=== PATIENT | male | born 1970 | race Two or more races ===

== ENCOUNTER 2017-02-05 07:19 | Emergency (ER) | payer MEDICAID ==
[~2017-02-05] VITALS: Ht 188 cm; Wt 92.1 kg
[~2017-02-05 07:19] MED LIST: GABA300C PO; INSLANTI SC; LEVO150T58 PO; METF-312; METF-314 PO
[2017-02-05 07:38] VITALS: BP 152/88
== END 2017-02-05 08:00 | disposition home or self-care (01) ==
LOC: ER 07:19
DX: H10.31 Unspecified acute conjunctivitis, right eye (principal); I10 Essential (primary) hypertension; E11.9 Type 2 diabetes mellitus without complications; Z79.4 Long term (current) use of insulin

== ENCOUNTER 2017-04-27 15:35 | Inpatient (IN) | payer MEDICAID ==
[~2017-04-27] VITALS: Ht 188 cm; Wt 96.3 kg
[~2017-04-27 15:35] MED LIST changes: -METF-312; -METF-314 PO; +METF-370; +METF-371 PO
[2017-04-27] MEDS ORDERED: SODIUM CHLORIDE 0.9% 2,000 ML IV ONE (16:00)
[2017-04-27] MEDS ORDERED: SODIUM CHLORIDE 0.9% 3,000 ML IV ONE (16:00)
[2017-04-27 16:31] LABS: Basophils # (auto) 0.2 uL; Basophils % (auto) 2.2 % (0.0-2.0); CONDITION Y; Eosinophils # (auto) 0.1 uL; Hematocrit 41.2 % (41.0-53.0); Hemoglobin 14.3 g/dL (13.5-17.5); Lymphocytes # (auto) 2.2 uL; Lymphocytes % (auto) 24.1 % (10.0-50.0); Mean Corpuscular Hemoglobin 31.7 pg (28.0-32.0); Mean Corpuscular Hgb Conc. 34.6 g/dL (32.0-36.0); Mean Corpuscular Volume 91.5 fL (80.0-100.0); Mean Platelet Volume 7.7 fL (7.4-10.4); Monocytes # (auto) 0.6 uL; Monocytes % (auto) 6.6 % (0.0-12.0); Neutrophils # (auto) 6.1 uL; Neutrophils % (auto) 66.1 % (37.0-80.0); Platelet Count (auto) 357 10^3/uL (140-450); Red Cell Distribution Width 14.3 % (11.6-16.0); White Blood Cell 9.3 10^3/uL (4.4-10.8)
[2017-04-27 17:08] LABS: Albumin 3.6 g/dL (3.4-5.0); BUN/Creatinine Ratio 6.9; Bilirubin, Total 0.4 mg/dL (0.2-1.0); Calcium 8.8 mg/dL (8.5-10.1); Potassium 4.3 mmol/L (3.5-5.1); Total Protein 7.4 g/dL (6.4-8.2)
[2017-04-27] MEDS ORDERED: SODIUM CHLORIDE 0.9% 1,000 ML IV ONE (18:15)
[2017-04-27 20:13] LABS: Urine RBC None Seen /hpf (0 - 3)
[2017-04-27 20:26] LABS: Urine Bilirubin Negative (Negative); Urine Blood Negative /uL (Negative); Urine Color Yellow (Yellow); Urine Ketone Negative (Negative); Urine Nitrite Negative (Negative); Urine Urobilinogen Normal (Negative); Urine pH 5.5 (5.0-8.0)
[2017-04-27 20:27] LABS: Urine Glucose 4+ mg/dL (Normal)
[2017-04-27] MEDS ORDERED: ONDANSETRON HCL 4 MG/2 ML VIAL IV ONE (22:00)
[2017-04-27] MEDS ORDERED: MORPHINE SULFATE 4 MG/ML SYRG IV ONE (22:00)
[2017-04-28] MEDS ORDERED: SODIUM CHLORIDE 0.9% 1,000 ML IV SCH (01:04)
[2017-04-28] MEDS ORDERED: ACETAMINOPHEN 325 MG TAB PO PRN (01:15)
[2017-04-28] MEDS ORDERED: DEXTROSE (50%) 50ML SYRG IV PRN (01:15)
[2017-04-28] MEDS ORDERED: ONDANSETRON HCL 4 MG/2 ML VIAL IV PRN (01:15)
[2017-04-28 02:13] LABS: BUN/Creatinine Ratio 13.4; Calcium 7.7 mg/dL (8.5-10.1); Potassium 3.8 mmol/L (3.5-5.1)
[2017-04-28 02:40] VITALS: BP 123/82
[2017-04-28 02:50] VITALS: BP 123/87
[2017-04-28] MEDS ORDERED: LISI-275 PO (04:28)
[2017-04-28] MEDS ORDERED: ATOR10TA52 PO (04:29)
[2017-04-28] MEDS ORDERED: ASPI81TA27 PO (04:29)
[2017-04-28 05:00] VITALS: BP 121/73
[2017-04-28] MEDS: ACCU-CHEK COMFORT CURVE STRIP VI SCH ×2 (06:15→12:00)
[2017-04-28] MEDS: InsuLIN REG 1unit/0.01ml Soln (100units/ml) SC SCH ×2 (06:16→12:45)
[2017-04-28] MEDS ORDERED: LEVOTHYROXINE SODIUM 50 MCG TAB PO SCH (07:00)
[2017-04-28] MEDS ORDERED: glipiZIDE 5 MG TAB PO SCH (07:00)
[2017-04-28 09:48] VITALS: BP 113/63
[2017-04-28] MEDS ORDERED: ENOXAPARIN SOD 40 MG/0.4 ML SYRINGE SC SCH (10:00)
[2017-04-28] MEDS ORDERED: FAMOTIDINE 20 MG TAB PO SCH (10:00)
[2017-04-28] MEDS ORDERED: LISINOPRIL 5 MG TAB PO SCH (10:00)
[2017-04-28] MEDS ORDERED: HYDROcodone-ACET 10/325MG TAB PO PRN (10:30)
[2017-04-28] MEDS ORDERED: INSULIN DETEMIR(LEVEMIR) 1unit/0.01ml Soln (100units/ml) SC ONE (13:30)
[2017-04-28 14:33] VITALS: BP 112/83
[2017-04-28 14:50] VITALS: BP 113/83
[2017-04-29] MEDS ORDERED: INSULIN DETEMIR(LEVEMIR) 1unit/0.01ml Soln (100units/ml) SC SCH (07:00)
== END 2017-04-28 13:45 | disposition home or self-care (01) | DRG 420 ==
LOC: ER 15:39 → OVERFLOW 15:40 → CENTRAL 04-28 02:40
PROVIDERS: ADMIT Nurse Practitioner; ATTEND Internal Medicine
DX: E11.65 Type 2 diabetes mellitus with hyperglycemia (principal); E87.8 Other disorders of electrolyte and fluid balance, not elsewhere classified; E11.40 Type 2 diabetes mellitus with diabetic neuropathy, unspecified; I10 Essential (primary) hypertension; E03.9 Hypothyroidism, unspecified; G89.29 Other chronic pain; Z83.3 Family history of diabetes mellitus; E86.0 Dehydration; E87.1 Hypo-osmolality and hyponatremia; Z79.4 Long term (current) use of insulin; Z71.89 Other specified counseling; Z80.9 Family history of malignant neoplasm, unspecified; Z83.49 Family history of other endocrine, nutritional and metabolic diseases
CPT/HCPCS: 36415; 71101; 80048; 80053; 81001; 82962; 83036; 83735; 84443; 85025; 94761; 96361; 96374; 96375; J1815; J2405